=== PATIENT | female | born 1980 ===

== ENCOUNTER 2016-12-26 18:26 | Emergency (ER) | payer MEDICAID, OTHER ==
[2016-12-26 18:42] VITALS: BP 138/53; PULSE 91; RESP 16; TEMP 98; O2SAT 100
--- NOTE | 2016-12-26 18:55 | ED PDOC ---
HPI: CCC, URI, Sore Throat Time Seen by Provider: 12/26/16 18:34 Chief Complaint (Nursing): ENT Problem Chief Complaint (Provider): Ear pain History Per: Patient History/Exam Limitations: no limitations Onset/Duration Of Symptoms: Days (a few days) Current Symptoms Are (Timing): Still Present Location Of Pain: Ear(s) Additional Complaint(s): Donna Arvizu is a 36-year-old female who presents to the emergency department complaining of left ear pain, ongoing for the past 2-3 days. Patient denies fever. PMD: None Past Medical History Reviewed: Historical Data, Nursing Documentation, Vital Signs Vital Signs: Last Vital Signs Temp 98.0 F 12/26/16 18:39 Pulse 91 H 12/26/16 18:39 Resp 16 12/26/16 18:39 BP 138/53 L 12/26/16 18:39 Pulse Ox 100 12/26/16 19:13 - Surgical History Surgical History: No Surg Hx - Family History Family History: States: Unknown Family Hx - Home Medications Home Medications: Ambulatory Orders Medication Instructions Recorded Ciprofloxacin/Hydrocortisone 10 ml XX BID 7 Days 12/26/16 [Cipro Hc 0.2%-1% 10 ml] Fexofenadine/Pseudoephedrine 1 each PO BID PRN #12 tab.er.12h 12/26/16 [Kristen-D 12 Hour Tablet] - Allergies Allergies/Adverse Reactions: Allergies Allergy/AdvReac Type Severity Reaction Status Date / Time No Known Allergies Allergy Verified 12/26/16 18:39 Review of Systems ROS Statement: Except As Marked, All Systems Reviewed And Found Negative Constitutional: Negative for: Fever ENT: Positive for: Ear Pain (Left-sided) Physical Exam - Reviewed Nursing Documentation Reviewed: Yes Vital Signs Reviewed: Yes - Physical Exam Appears: Positive for: Well, Non-toxic, No Acute Distress Head Exam: Positive for: ATRAUMATIC, NORMAL INSPECTION, NORMOCEPHALIC Skin: Positive for: Normal Color, Warm, Dry Eye Exam: Positive for: EOMI, Normal appearance, PERRL ENT: Positive for: Other (Left tenderness on palpation to the pinna and tragal area. No erythema) Neck: Positive for: Normal, Painless ROM, Supple Back: Positive for: Normal Inspection. Negative for: Vertebral Tenderness Extremity: Positive for: Normal ROM. Negative for: Deformity Neurologic/Psych: Positive for: Alert, Oriented - ECG O2 Sat by Pulse Oximetry: 100 (RA) Pulse Ox Interpretation: Normal Medical Decision Making Medical Decision Making: Time: 18:57 Impression: Otitis externa, left Upon provider evaluation patient is medically stable, and requires no further treatment in the ED at this time. Patient will be discharged home with Rx for Cipro Hc 0.2% (10 mL BID for 7 days), and Kristen-D (1 tab PO BID as needed for congestion). Counseling was provided and all questions were answered regarding diagnosis and need for follow up. There is agreement to discharge plan. Return if symptoms persist or worsen. Scribe Attestation: Documented by Samanta Pitt, acting as a scribe for Lola Solorio PA-C Provider Scribe Attestation: All medical record entries made by the Scribe were at my direction and personally dictated by me. I have reviewed the chart and agree that the record accurately reflects my personal performance of the history, physical exam, medical decision making, and the department course for this patient. I have also personally directed, reviewed, and agree with the discharge instructions and disposition. Disposition - Clinical Impression Clinical Impression: Otitis externa, left - Patient ED Disposition Is Patient to be Admitted: No Counseled Patient/Family Regarding: Diagnosis, Need For Followup, Rx Given - Disposition Disposition: Routine/Home Disposition Time: 18:59 Condition: STABLE Prescriptions: Ciprofloxacin/Hydrocortisone [Cipro Hc 0.2%-1% 10 ml] 10 ml XX BID 7 Days Fexofenadine/Pseudoephedrine [Kristen-D 12 Hour Tablet] 1 each PO BID PRN #12 tab.er.12h PRN Reason: Cough And Congestion Instructions: Otitis Externa (ED) Print Language: ITALIAN
== END 2016-12-26 19:15 | disposition home or self-care (01) ==
LOC: H.ER 18:26
DX: H60.92 Unspecified otitis externa, left ear (principal)